=== PATIENT | female | born 1990 | race Caucasian/White ===

== ENCOUNTER 2020-11-03 13:17 | Emergency (ER) | payer SELFPAY ==
[2020-11-03] MEDS ORDERED: Lidocaine 1% PF 5 ML VIAL ONE ×2 (13:28→13:51)
[2020-11-03] MEDS ORDERED: Boostrix 0.5 ML (Tdap) VIAL ONE (13:28)
== END 2020-11-03 14:25 | disposition home or self-care (01) ==
LOC: BURERS 13:17
DX: S61.216A Laceration without foreign body of right little finger without damage to nail, initial encounter (principal); S61.214A Laceration without foreign body of right ring finger without damage to nail, initial encounter; S61.511A Laceration without foreign body of right wrist, initial encounter; S60.031A Contusion of right middle finger without damage to nail, initial encounter; Z23 Encounter for immunization; W23.0XXA Caught, crushed, jammed, or pinched between moving objects, initial encounter
CPT/HCPCS: 12001; 90471; 90715